=== PATIENT | male | born 1940 | race Caucasian/White ===

== ENCOUNTER 2017-01-25 14:33 | Emergency (ER) | payer MEDICARE ==
[~2017-01-25] VITALS: Ht 182.9 cm; Wt 113.8 kg
[2017-01-25 14:35] VITALS: BP 181/92; PULSE 74; RESP 20; TEMP 97.6; O2SAT 92
[2017-01-25] MEDS ORDERED: LOVA40TA PO (14:49)
[2017-01-25] MEDS ORDERED: EYE GTTS (14:49)
[2017-01-25] MEDS ORDERED: METO50TA PO (14:49)
[2017-01-25] MEDS ORDERED: HYDR12.56 PO ×2 (14:49→15:05)
[2017-01-25] MEDS ORDERED: PRIL20TA2 (14:49)
--- NOTE | 2017-01-25 14:57 | PD ---
HPI Chief Complaint: Respiratory Symptoms Time Seen by Provider: 14:44 Travel History International Travel<30 days: No Contact w/Intl Traveler<30days: No Traveled to known affect area: No History of Present Illness HPI This patient complains of cough and congestion and wheezing. Recently completed course of both Zithromax and doxycycline. He denies fever or chest pain. Symptoms severity is moderate. No alleviating factors. He quit smoking years ago. PFSH Past Medical History Asthma: Yes Cardiovascular Problems: Yes Hypertension: Yes Respiratory: Yes Past Surgical History Abdominal Surgery: Yes (HERNIA) Cardiac Surgery: Yes (AORTIC VALVE REPLACEMENT) Cholecystectomy: Yes Social History Alcohol Use: No Tobacco Use: No Substance Use: No Allergies-Medications (Allergen,Severity, Reaction): Coded Allergies: No Known Allergies (Unverified , 01/25/17) Reported Meds & Prescriptions Reported Meds & Active Scripts Active Reported Prilosec (Omeprazole Magnesium) 20 Mg Tab [Eye Gtts] Hydrochlorothiazide 12.5 Mg Tab 12.5 Mg PO DAILY Lovastatin 40 Mg Tab 40 Mg PO DAILY Metoprolol Tartrate 50 Mg Tab 50 Mg PO DAILY Review of Systems HENT: No: Headaches Cardiovascular: No: Chest Pain or Discomfort Respiratory: Positive: Cough, Wheezing Physical Exam Narrative GENERAL: Well-nourished, well-developed patient in no apparent distress. SKIN: Focused skin assessment reveals no rash and nodules. Skin is Warm and dry. HEAD: Atraumatic. Normocephalic. EYES: Pupils equal and round. No scleral icterus. No injection or drainage. ENT: No nasal bleeding or discharge. Mucous membranes pink and moist. NECK: Trachea midline. No JVD. CARDIOVASCULAR: Regular rate and rhythm. No murmur appreciated. RESPIRATORY: No accessory muscle use. Expiratory wheeze with some rhonchi. Breath sounds equal bilaterally. GASTROINTESTINAL: Abdomen soft, non-tender, nondistended. Hepatic and splenic margins not palpable. MUSCULOSKELETAL: No obvious deformities. No clubbing. No cyanosis. No edema. NEUROLOGICAL: Awake and alert. No obvious cranial nerve deficits. Motor grossly within normal limits. Normal speech. PSYCHIATRIC: Appropriate mood and affect; insight and judgment normal. Data Data Last Documented VS Vital Signs Date Time Temp Pulse Resp B/P (MAP) Pulse Ox O2 Delivery O2 Flow Rate FiO2 01/25/17 14:35 97.6 74 20 181/92 (121) 92 Orders Orders Albuterol-Ipratropium Neb (Duoneb Neb) (01/25/17 15:00) Prednisone (Deltasone) (01/25/17 15:00) [facility] Medical Decision Making Medical Screen Exam Complete: Yes Emergency Medical Condition: Yes Medical Record Reviewed: Yes Differential Diagnosis Bronchitis, COPD, asthma Narrative Course I have reviewed the patient's electronic medical record. I gave him a series of nebulizer treatments Gave him a dose of prednisone I refilled his diuretic at his request. I gave him 5 days of prednisone. Stable for outpatient follow-up Diagnosis Primary Impression: Asthma with acute exacerbation Qualified Codes: J45.901 - Unspecified asthma with (acute) exacerbation Additional Instructions: The patient was advised to follow up with their physician and return if they worsen. Med/Other Pt SpecificInfo: Prescription(s) given Scripts Prednisone (Prednisone) 20 Mg Tab 40 MG PO DAILY, #10 TAB 0 Refills Take 40 mg (2 tablets) daily for 5 days Prov: Sammy Robertson MD 01/25/17 Hydrochlorothiazide (Hydrochlorothiazide) 12.5 Mg Tab 12.5 MG PO DAILY, #30 TAB 0 Refills Prov: Sammy Robertson MD 01/25/17 Disposition: 01 DISCHARGE HOME Condition: Stable Sammy Robertson MD Jan 25, 2017 14:57
[2017-01-25] MEDS ORDERED: RESP: ALBUTEROL 2.5 MG/IPRATROPIUM 0.5 MG NEB (SCH) NEB ONE (15:00)
[2017-01-25] MEDS ORDERED: predniSONE 20 MG TAB PO ONE (15:00)
[2017-01-25] MEDS ORDERED: PRED20 PO (15:05)
[2017-01-25] MEDS ORDERED: VENTAER INH (15:43)
== END 2017-01-25 15:49 | disposition home or self-care (01) ==
LOC: PHEFT 14:33
DX: J45.901 Unspecified asthma with (acute) exacerbation (principal); I10 Essential (primary) hypertension; Z95.2 Presence of prosthetic heart valve; Z79.899 Other long term (current) drug therapy
CPT/HCPCS: 94664; 99284; J7512